=== PATIENT | female | born 1935 | race Caucasian/White ===

== ENCOUNTER 2020-06-09 04:32 | Observation (INO) | payer MEDICARE, OTHER, SELFPAY ==
[2020-06-09] VITALS (9 sets, daily range): BP systolic 131–207; BP diastolic 55–99; PULSE 52–74; RESP 16–28; TEMP 36.7–37; O2SAT 93–100; BMI 28.4
--- NOTE | 2020-06-09 04:35 | CTR_ITS ---
PROCEDURE INFORMATION: Exam: CT Angiography Head With Contrast Exam date and time: 06/09/2020 5:51 AM Age: 84 years old Clinical indication: Speech disturbance; Patient HX: Sudden onset of asphasia. N/v. ; Additional info: Ams/aphasia TECHNIQUE: Imaging protocol: Computed tomography angiography of the head with intravenous contrast. 3D rendering (Not supervised by radiologist): MIP and/or 3D reconstructed images were created by the technologist. Radiation optimization: All CT scans at this facility use at least one of these dose optimization techniques: automated exposure control; mA and/or kV adjustment per patient size (includes targeted exams where dose is matched to clinical indication); or iterative reconstruction. Contrast material: OMNI 350; Contrast volume: 95 ml; Contrast route: INTRAVENOUS (IV); COMPARISON: CT head wo con* [id number] 06/09/2020 4:28 AM RADIATION DOSE METRICS: Total DLP (mGy-cm): 1292.36 FINDINGS: ANTERIOR CIRCULATION: Right internal carotid artery: Unremarkable. Intracranial segment is patent with no significant stenosis. No aneurysm. Right middle cerebral artery: Unremarkable. No occlusion or significant stenosis. No aneurysm. Right anterior cerebral artery: Unremarkable. No occlusion or significant stenosis. No aneurysm. Left internal carotid artery: There is calcification in the left carotid siphon but no significant stenosis.. Intracranial segment is patent with no significant stenosis. No aneurysm. Left middle cerebral artery: Unremarkable. No occlusion or significant stenosis. No aneurysm. Left anterior cerebral artery: Unremarkable. No occlusion or significant stenosis. No aneurysm. POSTERIOR CIRCULATION: Right vertebral artery: Unremarkable. No occlusion or significant stenosis. No aneurysm. Left vertebral artery: Unremarkable. No occlusion or significant stenosis. No aneurysm. Basilar artery: Unremarkable. No occlusion or significant stenosis. No aneurysm. Right posterior cerebral artery: Unremarkable. No occlusion or significant stenosis. No aneurysm. Left posterior cerebral artery: Unremarkable. No occlusion or significant stenosis. No aneurysm. Brain: No definite mass, mass effect, or midline shift. Cerebral ventricles: Normal. No ventriculomegaly. Bones/joints: Unremarkable. No acute fracture. Soft tissues: Unremarkable. IMPRESSION: No large vessel stenosis or occlusion. PROCEDURE INFORMATION: Exam: CT Angiography Neck With Contrast Exam date and time: 06/09/2020 5:51 AM Age: 84 years old Clinical indication: Speech disturbance; Patient HX: Sudden onset of asphasia. N/v. ; Additional info: Ams/aphasia TECHNIQUE: Imaging protocol: Computed tomography angiography of the neck with intravenous contrast. 3D rendering (Not supervised by radiologist): MIP and/or 3D reconstructed images were created by the technologist. Radiation optimization: All CT scans at this facility use at least one of these dose optimization techniques: automated exposure control; mA and/or kV adjustment per patient size (includes targeted exams where dose is matched to clinical indication); or iterative reconstruction. Contrast material: OMNI 350; Contrast volume: 95 ml; Contrast route: INTRAVENOUS (IV); COMPARISON: CT head wo con* [id number] 06/09/2020 4:28 AM RADIATION DOSE METRICS: Total DLP (mGy-cm): 1292.36 FINDINGS: Right common carotid artery: No stenosis. No dissection or occlusion. Right internal carotid artery: No stenosis of the extracranial segment. No dissection or occlusion. Right external carotid artery: No occlusion or stenosis of the origin. Right vertebral artery: There is narrowing of the very distal portion of the right vertebral artery which is probably hypoplastic.. No dissection or occlusion. Left common carotid artery: No stenosis. No dissection or occlusion. Left internal carotid artery: No stenosis of the extracranial segment. No dissection or occlusion. Left external carotid artery: No occlusion or stenosis of the origin. Left vertebral artery: No stenosis. No dissection or occlusion. Bones/joints: No acute fracture. Soft tissues: There is a 6 mm low-density nodule in the right thyroid lobe.. No significant soft tissue swelling. CT/CT angio headneck* [id number] IMPRESSION: No stenosis or occlusion. REFERENCES: NASCET CRITERIA. The degree of internal carotid artery stenosis is based on NASCET criteria. Normal is no stenosis. Mild is less than 50% stenosis. Moderate is 50-69% stenosis. Severe is 70% to 99% stenosis. Total occlusion is no detectable patent lumen. Radiation Dose CTDIVOL = (mGy): DLP = 1292.36~1292.36 (mGy-cm)
--- NOTE | 2020-06-09 04:35 | CTR_ITS ---
PROCEDURE INFORMATION: Exam: CT Head Without Contrast Exam date and time: 06/09/2020 4:37 AM Age: 84 years old Clinical indication: Altered mental status/memory loss and speech disturbance; Confusion or disorientation; Aphasia; Additional info: Ams/aphasia TECHNIQUE: Imaging protocol: Computed tomography of the head without contrast. Radiation optimization: All CT scans at this facility use at least one of these dose optimization techniques: automated exposure control; mA and/or kV adjustment per patient size (includes targeted exams where dose is matched to clinical indication); or iterative reconstruction. Other technique: STROKE PROTOCOL was implemented. COMPARISON: No relevant prior studies available. RADIATION DOSE METRICS: Total DLP (mGy-cm): 818.77 FINDINGS: Brain: Diffuse mild cerebral age related volume loss. Mild patchy low attenuation in the white matter compatible with mild chronic small vessel ischemic disease. No midline shift, mass, fluid collection, or evidence of hemorrhage. Cerebral ventricles: Ventricular enlargement proportional to volume loss. Bones/joints: Unremarkable. No acute fracture. Paranasal sinuses: Visualized sinuses are unremarkable. No fluid levels. Mastoid air cells: Visualized mastoid air cells are well aerated. Soft tissues: Unremarkable. CT/CT head wo con* [id number] IMPRESSION: Mild involutional changes, no acute intracranial abnormality. ASSESSMENT: ASPECTS ([place] Stroke Program Early CT Score) is 10. Radiation Dose CTDIVOL = (mGy): DLP = 818.77 (mGy-cm)
--- NOTE | 2020-06-09 04:36 | XR_ITS ---
WS: [id number] Exam: XR chest 1V portable [id number] Date/Time of Exam: 06/09/2020 4:36 AM Reason For Exam: Altered mental status Comparison 06/01/2018. Findings: The lungs are clear and fully expanded. Costophrenic angles are sharp. No infiltrates. Bronchovascula r relief appears normal. Cardiac silhouette is unremarkable. Bony elements are intact. XR/XR chest 1V portable [id number] IMPRESSION: Unremarkable chest radiograph.
--- NOTE | 2020-06-09 04:36 | ECG_ITS ---
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 Measurements Intervals [place] Rate: 63 P: 1 NH: 179 QRS: 5 QRSD: 94 T: 18 QT: 430 QTc: 442 Interpretive Statements SINUS RHYTHM WITH SINUS ARRHYTHMIA No previous ECG available for comparison Electronically Signed On 06-09-2020 22:00:04 TERRAZZO LAYER by Jolynn Wilhelm M.D. [id number]
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
[2020-06-09] MEDS: sodium chloride 0.9% 1,000 ML 100 ML IV (05:08)
[2020-06-09 05:09] LABS: Basophils # 0.1 10^3/uL (0.0-0.1); Basophils % 0.8 %; Eosinophils # 0.1 10^3/uL (0.0-0.8); Eosinophils % 1.4 %; Hematocrit 40.6 % (37.0-47.0); Hemoglobin 13.6 g/dL (11.5-15.3); Lymphocytes # 1.6 10^3/uL (0.8-4.8); Lymphocytes % 24.7 %; Mean Corpuscular HGB Conc 33.5 g/dL (30.0-36.0); Mean Corpuscular Hemoglobin 30.6 pg (28.0-34.0); Mean Corpuscular Volume 91.2 fL (81-99); Monocytes # 0.7 10^3/uL (0.2-0.9); Monocytes % 10.3 %; Neutrophils # 4.09 10^3/uL (1.8-7.7); Neutrophils % 62.6 %; Nucleated Red Blood Cells % 0 %; Platelet Count 243 10^3/cmm (130-400); Red Blood Count 4.45 10^6/uL (4.1-5.3); Red Cell Distribution Width 12.1 % (12.1-15.1); White Blood Count 6.5 10^3/uL (4.0-10.0)
[2020-06-09 05:34] LABS: Alanine Aminotransferase 14 U/L (0-33); Albumin Level 3.9 g/dL (3.5-5.2); Alkaline Phosphatase 89 IU/L (35-105); Anion Gap 14.7 (5-19); Aspartate Amino Transferase 17 U/L (0-32); Blood Urea Nitrogen 17 mg/dL (8-23); Calcium 8.9 mg/dL (8.5-10.5); Carbon Dioxide 23 mmol/L (22-29); Chloride 105 mmol/L (98-107); Globulin 2.5 g/dL (1.3-4.6); Glucose 117 mg/dL (65-115); Magnesium 1.9 mg/dL (1.7-2.3); Osmolality Calculated 291 mOsm/kg (285-295); Potassium 3.7 mmol/L (3.5-5.1); Sodium 139 mmol/L (136-145); Total Bilirubin 0.7 mg/dL (0.15-1.2); Total Protein 6.4 g/dL (6.6-8.7)
[2020-06-09 05:36] LABS: Troponin(5th) Baseline 20 ng/L (0-10)
[2020-06-09 05:39] LABS: Alcohol Level < 10 mg/dL (0-10)
[2020-06-09 05:40] LABS: Amphetamines Screen Urine Negative (Negative); Barbiturates Screen Urine Negative (Negative); Benzodiazepines Screen Urine Negative (Negative); Cocaine Screen Urine Negative (Negative); Opiate Screen Urine Negative (Negative); PCP Screen Urine Negative (Negative); THC Screen Urine Negative (Negative)
[2020-06-09 05:42] LABS: Bilirubin Urine Neg (Negative); Blood Urine Neg (Negative); Glucose Urine UA Norm (Normal); Ketones Urine Negative (Negative); Leukocyte Esterase Urine Negative (Negative); Nitrate Urine Negative (Negative); Protein Urine Neg (Negative); Sulfosalicylic Acid Urine Negative (Negative); Urine Appearance Clear (CLEAR); Urine Color Yellow (Yellow); Urobilinogen Urine Norm (Negative); pH Urine 8 (5-7)
[2020-06-09 05:43] LABS: RBC Urine 0-4 /hpf (0-2); Squamous Epithelial Cell Urine 0-4 /hpf (0-5); WBC Urine 0-4 /hpf (0-5)
[2020-06-09 05:44] LABS: Add Urine Culture? No; Bacteria Urine TRACE /hpf; Mucus Urine 1+ /hpf; Transitional Epi Cells Urine 0-4 /hpf
[2020-06-09 05:55] LABS: INR 0.91 (0.8-1.2)
[2020-06-09 05:57] LABS: Partial Thromboplastin Time 25.9 SECONDS (23.9-36.7)
[2020-06-09] MEDS: famotidine 20 mg/2 mL INJ 40 MG IVP (06:10)
[2020-06-09] MEDS: hydrocortisone 100 mg/2 mL SDV IVP (06:11)
[2020-06-09] MEDS: diphenhydrAMINE 50 mg/mL SDV 1mL 12.5 MG IVP (06:11)
--- NOTE | 2020-06-09 06:36 | ECG_ITS ---
[facility] Test Date: 2020-06-09 Pat Name: Eva Mandel Department: Room: Gender: Female Travel Registered Nurse Icu: : 1935 Requested By: Janice Boyce Order Number: [id number] Efrain MD: Jolynn Wilhelm M.D. Measurements Intervals [place] Rate: 66 P: 24 TN: 171 QRS: 3 QRSD: 95 T: 234 QT: 489 QTc: 514 Interpretive Statements SINUS RHYTHM MODERATE T-WAVE ABNORMALITY, CONSIDER INFERIOR ISCHEMIA [-0.1+ mV T WAVE IN II/aVF] Compared to ECG 06/09/2020 05:09:17 T-wave abnormality now present Possible ischemia now present Sinus arrhythmia no longer present Electronically Signed On 06-09-2020 22:05:02 REHABILITATION NURSE by Jolynn Wilhelm M.D. [id number]
[2020-06-09 07:20] LABS: Troponin 5 2HR 17.23 ng/L (0-10)
[2020-06-09 07:24] LABS: Troponin 5 2HR Delta -2.77 ABS# (0-10)
[2020-06-09 08:25] LABS: Thyroid Stimulating Hormone 2.41 uIU/mL (0.27-4.20); Vitamin B12 200 pg/mL (232-1245)
--- NOTE | 2020-06-09 10:07 | MR_ITS ---
WS: [id number] MRI BRAIN WITHOUT CONTRAST HISTORY: Aphasia COMPARISON: 06/09/2020 TECHNIQUE: Diffusion imaging, multiplanar T1, T2 and FLAIR imaging obtained. No evidence for acute infarct or hemorrhage. Bhandari-white matter differentiation is normal. Acute diffusion-weighted abnormality involving the LEFT frontoparietal cortex. There is an additional tiny acute lacunar infarct in the cortex of the posterior LEFT frontal lobe. There is no associated hemorrhage. No midline shift. Additional scattered mild chronic microvascular ischemic disease throug hout the white matter. No large infarcts. Ventricles and extra-axial spaces are normal. No inferior displacement of cerebellar tonsils. The sella turcica and pituitary gland are unremarkabl e. Posterior fossa is also unremarkable. Dural venous sinuses and [place] demonstrate no abnormality on this unenhanced studies. Paranasal sinuses: Clear. Mastoid air cells: Normal. Calvarium and scalp: Intact. MR/MR head wo con* [id number] IMPRESSION: 1. Linear area of acute infarction involving the LEFT frontoparietal sulcus an d an additional adjacent tiny lacunar infarct in the cortex of the posterior LE FT frontal lobe. Nonhemorrhagic. 2. Mild chronic microvascular ischemic disease and atrophy.
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
[2020-06-09] MEDS: enoxaparin 40 mg/0.4 mL Syringe SUBCUT (10:35)
[2020-06-09 11:27] LABS: Troponin 5 6HR 16.58 ng/L (0-10)
[2020-06-09 11:34] LABS: Troponin 5 6HR Delta -3.42 ng/L (0-12)
[2020-06-09] MEDS: cyanocobalamin 1,000 mcg/mL SDV 1000 MCG IM (12:09)
--- NOTE | 2020-06-09 14:17 | PC.CHAP ---
Pastoral Care Encounter/Spiritual Assessment Type of Contact [] Declined printing screen assembler visit [] Patient/Family/Request visit [] Outpatient visit [x] Follow-up visit [] Physician referral [] Code/Alert [] Routine visit [] Staff referral [] Actively dying [] Patient sleeping [] Family support [] [] Out of room [] Palliative care [] [] Receiving care in room [] Pre-surgical visit [] Trauma [] Long length of stay [] ICU visit [] Other: Relational/Emotional Strength [] Patient feels connected with others/family/visitors/staff [] Distress [] Loneliness/isolation [] Abandonment Spirituality of Patient [] Person of Desire [] Attends Adventist of their Desire [] Believes in Prayer [] Reads Bible or Mormonism materials [] There are Spiritual issues to be addressed Automobile Or Truck Rental Dispatcher Interventions [] Prayer [] Active listening [] Non-anxious presence [] Spiritual/emotional support [] Crisis/trauma care [] Spiritual counseling [] Bereavement support [] Provided bereavement packet [] Provided Bible/devotional materials [] Provided toy/stuffed animal, coloring book to patient or family member [] Provided Communion [] Anointing/[place] [] Salvation [] Completed spiritual assessment [] Other: Impact on Illness or Injury [] Angry [] Fearful [] Anxious [] Often cries [] Exhaustion [] Unable to work [] Unable to attend methodist [] Unable to walk/stand [] Unable to read [] Unable to drive [] Unable to eat/drink [] Unable to sleep [] Unable to be with family [] Patient intubated [] Other: Summary Follow-up visit Time spent with patient 5 mins
[2020-06-09] MEDS: sodium chloride 0.9% 1,000 ML 75 ML IV (18:12)
[2020-06-10] VITALS (8 sets, daily range): BP systolic 154–190; BP diastolic 70–92; PULSE 55–60; RESP 18–20; TEMP 36.6–36.9; O2SAT 94–97
--- NOTE | 2020-06-10 05:52 | PC.NURSE ---
SHIFT SUMMARY: AT THE BEGINNING OF THE SHIFT THE PATIENT WAS VERY ANXIOUS AND CONFUSED. SHE WAS TRYING TO CLIMB OUT OF BED AND WANDER THE ROOM. AN ORDER WAS GIVEN FOR CIRILO TRUJILLO, BUT THE PATIENT REFUSED TO TAKE. AN UPDATED ORDER FOR IVP ATIVAN WAS PLACED. SHORTLY AFTER THE ORDER WAS PLACED, THE PATIENT CALMED DOWN AND WENT TO SLEEP.AROUND 0300 THE PATIENT BEGAN GETTING UP AGAIN AND SETTING OFF THE BED ALARM. AROUND 0400 THE PATIENT PULLED HER IV OUT. WHEN APPROACHED TO PLACE A NEW ONE, THE PATIENT REFUSED. ONCE REASSURED WHERE SHE WAS AND WHY SHE IS HERE, SHE WENT BACK TO SLEEP.
[2020-06-10 06:02] LABS: Basophils # 0.1 10^3/uL (0.0-0.1); Basophils % 0.8 %; Eosinophils # 0.1 10^3/uL (0.0-0.8); Hemoglobin 12.2 g/dL (11.5-15.3); Lymphocytes # 1.4 10^3/uL (0.8-4.8); Lymphocytes % 21.9 %; Mean Corpuscular Hemoglobin 30.4 pg (28.0-34.0); Mean Corpuscular Volume 92.3 fL (81-99); Mean Platelet Volume 11.5 fL (7.4-10.4); Monocytes # 0.8 10^3/uL (0.2-0.9); Monocytes % 12.5 %; Neutrophils # 4.01 10^3/uL (1.8-7.7); Neutrophils % 63.6 %; Nucleated Red Blood Cells % 0 %; Platelet Count 212 10^3/cmm (130-400); Red Blood Count 4.01 10^6/uL (4.1-5.3); Red Cell Distribution Width 12.4 % (12.1-15.1); White Blood Count 6.3 10^3/uL (4.0-10.0)
[2020-06-10 06:31] LABS: Alanine Aminotransferase 11 U/L (0-33); Albumin Level 3.4 g/dL (3.5-5.2); Alkaline Phosphatase 73 IU/L (35-105); Anion Gap 12.6 (5-19); Aspartate Amino Transferase 15 U/L (0-32); Blood Urea Nitrogen 14 mg/dL (8-23); Calcium 8.4 mg/dL (8.5-10.5); Carbon Dioxide 24 mmol/L (22-29); Chloride 107 mmol/L (98-107); Chol HDL Ratio 2.44 mg/dL (0.0-4.40); Cholesterol 139 mg/dL (0-200); Globulin 2.3 g/dL (1.3-4.6); Glucose 114 mg/dL (65-115); HDL Cholesterol 57 mg/dL (60-100); LDL Cholesterol Calculated 68 mg/dL (50-129); LDL HDL Ratio 1.19 RATIO (0.00-3.22); Osmolality Calculated 291 mOsm/kg (285-295); Potassium 3.6 mmol/L (3.5-5.1); Sodium 140 mmol/L (136-145); Total Bilirubin 0.5 mg/dL (0.15-1.2); Total Protein 5.7 g/dL (6.6-8.7); Triglycerides 68 mg/dL (0-150)
--- NOTE | 2020-06-10 07:00 | USCV_ITS ---
Ministerio Eva Age: 84 Gender: F : 1935 Exam Date: 06/10/2020 05:20 Ordering Phys: Chris Palencia MD Technologist: Lyn Khan Exam Location: [facility] [place] Indication: MURMUR RECENT CVA BP: 154 / 70 HR: 58 Rhythm: Sinus Technical Quality: Adequate MEASUREMENTS (Male / Female) Normal Values 2D ECHO LV Diastolic Diameter PLAX 3.9 cm 4.2 - 5.9 / 3.9 - 5.3 cm LV Systolic Diameter PLAX 2.6 cm LV Chamber Size 3.3 cm IVS Diastolic Thickness 1.6 cm 0.6 - 1.0 / 0.6 - 0.9 cm IVS Systolic Thickness 1.6 cm LVPW Diastolic Thickness 1.5 cm 0.6 - 1.0 / 0.6 - 0.9 cm LVPW Systolic Thickness 1.7 cm RV Chamber Size 2.3 cm LVOT Diameter 2.0 cm LV Ejection Fraction 2D Teich 62.6 % LV Ejection Fraction MOD 2C 60.3 % LV Ejection Fraction 2C AL 61.9 % LA Diameter 2.9 cm LA Width 4.5 cm LA Height 5.0 cm RA Width 2.9 cm RA Height 4.6 cm Aorta at Sinotubular Diameter 3.4 cm M-MODE LV Diastolic Diameter MM 4.0 cm 4.2 - 5.9 / 3.9 - 5.3 cm LV Systolic Diameter MM 2.9 cm LV Ejection Fraction MM Teich 54.2 % IVS Diastolic Thickness MM 1.4 cm 0.6 - 1.0 / 0.6 - 0.9 cm IVS Systolic Thickness MM 1.5 cm LVPW Diastolic Thickness MM 1.3 cm 0.6 - 1.0 / 0.6 - 0.9 cm LVPW Systolic Thickness MM 1.6 cm RV Diastolic Diameter MM 1.2 cm Aortic Annulus Diameter 3.5 cm LA Ao Ratio MM 1.0 MV E Point Septal Separation 0.3 cm DOPPLER AV Peak Velocity 159.0 cm/s LVOT Peak Velocity 104.0 cm/s AV Area Cont Eq vti 2.3 cm squared AV Area Cont Eq pk 2.2 cm squared MV Area PHT 3.7 cm squared Mitral E to A Ratio 1.1 MV E' Velocity 56.5 cm/s Mitral E to MV E' Ratio 11.4 Mitral E to LV E' Lateral Ratio 11.9 Mitral E to LV E' Septal Ratio 11.0 TR Peak Velocity 275.8 cm/s TR Peak Gradient 30.4 mmHg TR Mean Velocity 221.3 cm/s TR Mean Gradient 21.6 mmHg TR Velocity Time Integral 97.4 cm TV Peak E Velocity 69.0 cm/s Right Atrial Pressure 3.0 mmHg Pulmonary Artery Systolic Pressu 33.4 mmHg PV Peak Velocity 80.0 cm/s RV Acceleration Time 0.1 s RV Ejection Time 0.4 s RV AcT/ET 0.3 FINDINGS Left Ventricle Normal left ventricular size, systolic function and wall thickness, with no regional wall motion abnormalities. LVEF is 55-60%. Normal left ventricular wall thickness. Normal diastolic filling pattern. Right Ventricle The right ventricle is normal in size and function. Right Atrium The right atrium is normal in size. Left Atrium The left atrium is moderately dilated Mitral Valve Structurally normal mitral valve without significant stenosis or prolapse. There is no mitral regurgitation. Aortic Valve Structurally normal aortic valve without significant sclerosis or stenosis. There is no aortic regurgitation. Tricuspid Valve Structurally normal tricuspid valve without significant stenosis or regurgitation. RVSP is 30-35mmHg. Pulmonic Valve Structurally normal pulmonic valve without significant stenosis. There is no pulmonic regurgitation. Pericardium Normal pericardium without effusion. Aorta Normal ascending aorta dimension. CONCLUSIONS LV systolic function is normal with EF of 55-60% Diastolic function is normal Left atrium is dilated No comparison studies are available Kai Singletary MD (Electronically Signed) Final Date: 10 June 2020 14:27 S
--- NOTE | 2020-06-10 07:12 | PM.PN ---
Subjective Subjective: Interval history: Events of last night noted. Patient with significant confusion, requiring a dose of Ativan. She never did receive the Geodon that has been ordered. This morning she reports she has some nausea. She states she has a headache on the left. She feels as if she might vomit. She denies any confusion this morning. She denies any muscle weakness, difficulty speaking, or swallowing. Vitals/I&O/Wt Last Vital Signs Temp 97.8 F 06/10/20 04:00 Pulse 55 L 06/10/20 04:00 Resp 20 H 06/10/20 04:00 BP 190/92 06/10/20 04:00 Pulse Ox 96 06/10/20 04:00 06/09/20 06/10/20 06/10/20 22:59 06:59 14:59 Intake Total 480 / 480 Output Total 1200 / 1400 575 / 1975 Balance -720 / -920 -575 / -1495 Weight last 48 hrs Weight 79.832 kg Physical Exam Narrative: EXAM NARRATIVE: General exam is no apparent distress Cardiovascular regular rate and rhythm, occasional premature beat. Telemetry sinus rhythm. 2/6 systolic murmur Lungs clear no wheezing or crackles Abdomen soft nontender with positive bowel sounds Extremities no cyanosis clubbing or edema Neuro no obvious focal deficits Data : 06/10/20 05:27 06/10/20 05:27 A&P Assessment and plan (1) CVA (cerebral vascular accident): MRI demonstrated linear area of infarction left frontal parietal sulcus, acute lacunar infarct posterior left frontal lobe and microvascular disease CTA no flow-limiting disease or thrombus CT head yesterday no hemorrhage Initiated aspirin, statin and hold aspirin until results of CT known. 24 hours without significant symptoms. Initiating lisinopril today. Secondary to patient's complaints of nausea and headache today which were not present yesterday we will repeat CT head noncontrast to prove no hemorrhages present Await therapy evaluations today Await echocardiogram. Status: Acute Qualifiers: CVA mechanism: unspecified Qualified Code(s): I63.9 - Cerebral infarction, unspecified (2) Altered mental status: Has underlying dementia as well which is playing a role Significant anxiety over the last year according to family. Will initiate sertraline. TSH normal Vitamin B12 slightly low. IM dose given yesterday and start p.o. today Status: Acute Qualifiers: Altered mental status type: unspecified Qualified Code(s): R41.82 - Altered mental status, unspecified (3) Hypertension: Lisinopril scheduled to be initiated today. She was supposed to be on this at home but has been noncompliant recently with medication. Status: Acute Additional A&P Information DJD Allow natural Lovenox for DVT prophylaxis. Hold today's dose until CT head results known. Attestations Medical Necessity Statement*: May need continued hospitalization for monitoring secondary to onset of nausea and headache status post CVA. Will await results of CT head prior to making final determination. Coding Level of Care Code Acute Sales Effectiveness Manager for Arminda Love Diagnoses CVA (cerebral vascular accident) I63.9 CVA mechanism: unspecified Altered mental status R41.82 Altered mental status type: unspecified Hypertension I10
--- NOTE | 2020-06-10 07:17 | CT_ITS ---
WS: [id number] CT HEAD NONCONTRAST HISTORY: Nausea and headache starting today, CVA yesterday TECHNIQUE: Contiguous axial imaging performed through the brain in 2.5 mm imaging. Bone and soft tiss ue windows. Sagittal and coronal reformats reviewed. All CT scans at [facility] use at le ast one of these dose optimization techniques: automated exposure control; mA and/or kV adjustment pe r patient size (includes targeted exams where dose is matched to clinical indication); or iterative r econstruction. DLP: 785.27 mGy.cm COMPARISON: 06/09/2020 No acute intracranial hemorrhage, midline shift or mass effect. Mild atrophy and chronic ischemic disease. Very minimal CT changes in the LEFT frontoparietal region and the recently described very small infarct involving the cortex. The lacunar infarct is not eviden t by CT. There is no underlying hemorrhage or change. Ventricles: Normal size with no hydrocephalus. Moderate atherosclerosis intracranial carotid arteries. Paranasal sinuses: Mild mucoperiosteal thickening in the ethmoid air cells. Mastoid air cells: Well pneumatized. Calvarium and scalp: Skull is intact with no soft tissue edema or swelling. CT/CT head wo con* [id number] IMPRESSION: 1. No acute intracranial hemorrhage or edema identified. 2. No significant CT changes in the recently described areas of infarction inv olving the LEFT frontoparietal gyrus and lacunar infarct in the frontal cortex.
[2020-06-10] MEDS: cyanocobalamin 1,000 mcg Tablet 1000 MCG PO (08:01)
[2020-06-10] MEDS: lisinopril 10 mg Tablet PO (08:01)
[2020-06-10] MEDS: sertraline 50 mg Tablet 25 MG PO (08:01)
[2020-06-10] MEDS: sodium chloride 0.9% 1,000 ML 75 ML IV (08:25)
--- NOTE | 2020-06-10 10:02 | PM.DCS ---
Discharge Providers Date of Admission: 06/09/20 08:02 Date of Discharge: June 10, 2020 Attending Provider at Admission: Chris Palencia MD Attending Provider at Discharge: Chris Palencia MD Diagnoses at Discharge Discharge Diagnosis (1) CVA (cerebral vascular accident): Status: Acute Qualifiers: CVA mechanism: unspecified Qualified Code(s): I63.9 - Cerebral infarction, unspecified (2) Altered mental status: Status: Acute Qualifiers: Altered mental status type: unspecified Qualified Code(s): R41.82 - Altered mental status, unspecified (3) Hypertension: Status: Acute (4) Dementia: Status: Acute (5) Anxiety: Status: Acute Reason for Visit Reason for Visit: AMS Hospital Course Hospital Course Eva is an 84-year-old white female who presented to the hospital with difficulty speaking consistent with aphasia, and a headache. She had had some issues with anxiety, gradual worsening of memory difficulties for the last 8 to 9 months consistent with dementia with behaviors.. She has had no vomiting, fever, history of Covid. She was admitted to the hospital with concern of possible CVA. Initial CT head, CTA head and neck demonstrated no concerning findings. An MRI was performed which ultimately demonstrated a CVA, small left frontal parietal and small left lacunar infarct. Aspirin, statin was initiated. Sertraline initiated secondary to significant anxiety present greater than 6 months. Lisinopril initiated after 24 hours, at lower dose secondary to patient's markedly elevated blood pressure and history of previous treatment with lisinopril. By June 10 she was feeling much better. She had no significant symptoms. No aphasia was present. I discussed with her and her family possibility of discharge. This was arranged. She will follow-up with neurology, primary care provider. B12 level was checked and slightly low and supplementation initiated. TSH was normal. Physical Exam Narrative: EXAM NARRATIVE: See exam from earlier today Discharge Data Data Completed and Pending: Completed Studies During Hospitalization Category Date Time Status CT angio headneck * [id number] Urge nt Cat Scan 06/09/20 04:[address] head wo con* 7 0450 Stat Cat Scan 06/09/20 04:[address] head wo con* 7 0450 Urgent Cat Scan 06/10/20 07:17 Completed XR chest 1V [place] ble [id number] Stat Exams 06/09/20 04:36 Completed MR head wo con* 7 0551 Routine MRI 06/09/20 10:07 Completed Pending at discharge Category Date Time Status CV echo complete* [id number] Routine Ultrasound 06/10/20 07:00 Taken Labs from last 24 hours 06/10/20 06/10/20 06/10/20 05:27 05:27 05:27 WBC 6.3 RBC 4.01 L Hgb 12.2 Hct 37.0 MCV 92.3 MCH 30.4 MCHC 33.0 RDW 12.4 Plt Count 212 MPV 11.5 H Neut % (Auto) 63.6 Lymph % (Auto) 21.9 [place] % (Auto) 12.5 Eos % (Auto) 1.0 Baso % (Auto) 0.8 Neut # (Auto) 4.01 Lymph # (Auto) 1.4 [place] # (Auto) 0.8 Eos # (Auto) 0.1 Baso # (Auto) 0.1 Nucleated RBC % (a uto) 0 Nucleated RBCs # 0.0 Sodium 140 Potassium 3.6 Chloride 107 Carbon Dioxide 24 Anion Gap 12.6 BUN 14 Creatinine 0.8 GFR Calculation Not Reportable Glucose 114 Calculated Osmolal ity 291 Calcium 8.4 L Total Bilirubin 0.5 AST 15 ALT 11 Alkaline Phosphata se 73 Troponin T Hi Sens 6Hr Troponin T Hi Sens 6Hr Delta Total Protein 5.7 L Albumin 3.4 L Globulin 2.3 Triglycerides 68 Cholesterol 139 LDL Cholesterol, C alc 68 HDL Cholesterol 57 L LDL/HDL Ratio 1.19 Cholesterol/HDL Ra arturo 2.44 06/09/20 10:42 WBC RBC Hgb Hct MCV MCH MCHC RDW Plt Count MPV Neut % (Auto) Lymph % (Auto) [place] % (Auto) Eos % (Auto) Baso % (Auto) Neut # (Auto) Lymph # (Auto) [place] # (Auto) Eos # (Auto) Baso # (Auto) Nucleated RBC % (a uto) Nucleated RBCs # Sodium Potassium Chloride Carbon Dioxide Anion Gap BUN Creatinine GFR Calculation Glucose Calculated Osmolal ity Calcium Total Bilirubin AST ALT Alkaline Phosphata se Troponin T Hi Sens 6Hr 16.58 H Troponin T Hi Sens 6Hr Delta -3.42 L Total Protein Albumin Globulin Triglycerides Cholesterol LDL Cholesterol, C alc HDL Cholesterol LDL/HDL Ratio Cholesterol/HDL Ra arturo Vitals: Last Vital Signs Temp 97.9 F 06/10/20 08:00 Pulse 57 L 06/10/20 08:00 Resp 18 06/10/20 08:00 BP 176/74 06/10/20 08:00 Pulse Ox 95 06/10/20 08:00 Discharge Plan Discharge Patient Disposition: Home Condition: Stable Prescriptions: New cyanocobalamin (vitamin B-12) [Vitamin B-12] 1,000 mcg Tablet 1,000 mcg PO DAILY Qty: 30 RF: 0 sertraline 50 mg Tablet 25 mg PO DAILY Qty: 15 RF: 0 atorvastatin 40 mg Tablet 40 mg PO BEDTIME Qty: 30 RF: 0 lisinopril 10 mg Tablet 10 mg PO DAILY Qty: 30 RF: 0 aspirin 325 mg Tablet,Delayed Release (Dr/Ec) 325 mg PO DAILY Qty: 30 RF: 0 Discontinued aspirin 325 mg Tablet See Rx Instructions .ROUTE .COMPLEX RF: 0 lisinopril 20 mg Tablet See Rx Instructions .ROUTE .COMPLEX RF: 0 ibuprofen 200 mg Tablet 200 - 800 mg PO PRN RF: 0 Discharge Orders: Discharge Order (Routine); Ordered 06/10/20 Ordered By: Chris Palencia Referrals: Una Kamara MD [Physician] - 2 weeks (Follow up for memory problems as well as CVA) Edwige Riggs DO [Physician] - 06/15/20 9:00 am Discharge Diet: Cardiac Discharge Activity: Increase activity as tolerated Activity Restrictions/Additional Instructions: No driving. Family to stay with you the first 2 nights. Follow-up with neurology 2 weeks Follow-up with primary care provider 3 to 5 days Discharge Attestations Time Spent in Discharge Care*: greater than 30 min Quality Metrics Clinical Quality Measures During this hospital stay, did patient experience: Stroke Contraindication to Antithrombotic: Antithrombotic prescribed Contraindication to Anticoagulation: Other (not indicated) Contraindication to Statin: Statin prescribed Reason stroke education not provided: Stroke education provided to patient Coding Level of Care Code Acute Filer Repairer for Arminda Fwthalia Diagnoses CVA (cerebral vascular accident) I63.9 CVA mechanism: unspecified Altered mental status R41.82 Altered mental status type: unspecified Hypertension I10 Dementia F03.90 Anxiety F41.9
[2020-06-10] MEDS: enoxaparin 40 mg/0.4 mL Syringe SUBCUT (10:27)
[2020-06-10] MEDS: aspirin 325 mg EC Tablet PO (10:27)
[2020-06-10] MEDS: hyDRALAzine 20 mg/mL INJ 1 mL 5 MG IVP (10:43)
--- NOTE | 2020-06-10 11:11 | PC.CHAP ---
Pastoral Care Encounter/Spiritual Assessment Type of Contact [] Declined computer education professor visit [] Patient/Family/Request visit [] Outpatient visit [xx] Follow-up visit [] Physician referral [] Code/Alert [xx] Routine visit [] Staff referral [] Actively dying [] Patient sleeping [] Family support [] [] Out of room [] Palliative care [] [] Receiving care in room [] Pre-surgical visit [] Trauma [] Long length of stay [] ICU visit [] Other: Relational/Emotional Strength [xx] Patient feels connected with others/family/visitors/staff [] Distress [] Loneliness/isolation [] Abandonment Spirituality of Patient [xx] Person of Desire [] Attends Yazdanism of their Desire [xx] Believes in Prayer [xx] Reads Bible or Church materials [] There are Spiritual issues to be addressed Route Sales Driver Interventions [] Prayer [] Active listening [] Non-anxious presence [] Spiritual/emotional support [] Crisis/trauma care [] Spiritual counseling [] Bereavement support [] Provided bereavement packet [] Provided Bible/devotional materials [] Provided toy/stuffed animal, coloring book to patient or family member [] Provided Communion [] Anointing/[place] [] Salvation [xx] Completed spiritual assessment [] Other: Impact on Illness or Injury [] Angry [] Fearful [] Anxious [] Often cries [] Exhaustion [] Unable to work [] Unable to attend taoism [] Unable to walk/stand [] Unable to read [] Unable to drive [] Unable to eat/drink [] Unable to sleep [] Unable to be with family [] Patient intubated [] Other: Summary Pt scheduled for discharge. Pt spoke much about her family - 4 generations including self. They all live close and are close-knit family. Pt had mild stroke but family will help her overcome situation per her statement. Very pleasant to talk to. Time spent with patient 10 minutes
== END 2020-06-10 16:30 | disposition home or self-care (01) ==
LOC: ER 07:23 → MEDSURG 08:35
PROVIDERS: Admitting Provider Internal Medicine; Emergency Provider Emergency Medicine; Visit Provider Internal Medicine
DX: I63.9 Cerebral infarction, unspecified (principal); R41.82 Altered mental status, unspecified; I10 Essential (primary) hypertension; Z79.82 Long term (current) use of aspirin; M19.90 Unspecified osteoarthritis, unspecified site; F03.90 Unspecified dementia, unspecified severity, without behavioral disturbance, psychotic disturbance, mood disturbance, and anxiety; F41.9 Anxiety disorder, unspecified
CPT/HCPCS: 12345; 36415; 70450; 70496; 70498; 70551; 71045; 80053; 80061; 80306; 80307; 81001; 82607; 83735; 84443; 84484; 85025; 85610; 85730; 93005; 93306; 96360; 96361; 96372; 96374; 96375; 97161; 97165; 99283; 99285; G0378; J0360; J1200; J1650; J1720; J3420; J3490; J7030

== ENCOUNTER → 2020-06-15 10:20 | Outpatient (BNVA) | payer MEDICARE, OTHER, SELFPAY | PROVIDERS: Visit Provider Family Medicine | DX: N39.3 Stress incontinence (female) (male) (principal); R30.0 Dysuria; F41.9 Anxiety disorder, unspecified; I63.9 Cerebral infarction, unspecified; I10 Essential (primary) hypertension; Z68.27 Body mass index [BMI] 27.0-27.9, adult; Z71.89 Other specified counseling | CPT/HCPCS: 81000; 87077; 87086; 87184 ==

== ENCOUNTER → 2020-07-06 10:44 | Outpatient (BNVA) | payer MEDICARE, OTHER, SELFPAY | PROVIDERS: PCP Family Medicine; Visit Provider Family Medicine | DX: I63.9 Cerebral infarction, unspecified (principal) | CPT/HCPCS: 80053 ==

== ENCOUNTER → 2020-07-11 13:50 | Outpatient (BNVA) | payer MEDICARE, OTHER, SELFPAY | PROVIDERS: PCP Family Medicine; Visit Provider Specialist | DX: Z86.73 Personal history of transient ischemic attack (TIA), and cerebral infarction without residual deficits (principal); G31.83 Neurocognitive disorder with Lewy bodies | CPT/HCPCS: 96116; 99205 ==

== ENCOUNTER → 2020-10-07 12:10 | Outpatient (BNVA) | payer MEDICARE, OTHER, SELFPAY | PROVIDERS: PCP Family Medicine; Visit Provider Family Medicine | DX: I10 Essential (primary) hypertension (principal); G31.83 Neurocognitive disorder with Lewy bodies | CPT/HCPCS: 80053; 80061 ==

== ENCOUNTER 2020-11-28 09:01 | Outpatient (CLI) | payer MEDICARE, OTHER, SELFPAY ==
--- NOTE | 2020-11-28 09:05 | US_ITS ---
WS: [id number] BILATERAL DIGITAL DIAGNOSTIC MAMMOGRAM MAMMOGRAPHY WITH CAD CLINICAL INFORMATION: left breast pain HISTORY: Pain and soreness left axilla after COVID vaccine COMPARISON: None. TECHNIQUE: Bilateral CC, MLO, and ML views. FINDINGS: Scattered fibroglandular densities bilaterally. Vascular calcification. A few punctate and dystrophic calcifications. No suspicious mammographic abnormalities. ULTRASOUND BREAST LEFT TECHNIQUE: Ultrasound left breast focused area of concern. CLINICAL INFORMATION: left breast pain FINDINGS: Ultrasound left axilla in the area of concern. Normal axillary lymph nodes are visualized preserved f atty hilum. No cortical thickening. No suspicious abnormalities in the left axilla. US/US breast LT limited* [id number] IMPRESSION: BI-RADS: 2-Benign FOLLOW UP: 1 Year Follow-up Recommend return to annual screening mammography.
--- NOTE | 2020-11-28 09:30 | MM_ITS ---
WS: [id number] BILATERAL DIGITAL DIAGNOSTIC MAMMOGRAM MAMMOGRAPHY WITH CAD CLINICAL INFORMATION: left breast pain HISTORY: Pain and soreness left axilla after COVID vaccine COMPARISON: None. TECHNIQUE: Bilateral CC, MLO, and ML views. FINDINGS: Scattered fibroglandular densities bilaterally. Vascular calcification. A few punctate and dystrophic calcifications. No suspicious mammographic abnormalities. ULTRASOUND BREAST LEFT TECHNIQUE: Ultrasound left breast focused area of concern. CLINICAL INFORMATION: left breast pain FINDINGS: Ultrasound left axilla in the area of concern. Normal axillary lymph nodes are visualized preserved f atty hilum. No cortical thickening. No suspicious abnormalities in the left axilla. MM/[place] [id number] IMPRESSION: BI-RADS: 2-Benign FOLLOW UP: 1 Year Follow-up Recommend return to annual screening mammography.
== END 2020-11-28 09:02 | disposition home or self-care (01) ==
LOC: RADSHAW 09:04
PROVIDERS: PCP Family Medicine; Visit Provider Family Medicine
DX: N64.4 Mastodynia (principal)
CPT/HCPCS: 76642; 77066

== ENCOUNTER → 2021-01-23 10:52 | Outpatient (BNVA) | payer MEDICARE, OTHER, SELFPAY | PROVIDERS: PCP Family Medicine; Visit Provider Nurse Practitioner Family | DX: M79.671 Pain in right foot (principal) | CPT/HCPCS: 73620; 73630 ==

== ENCOUNTER → 2021-04-07 12:18 | Outpatient (BNVA) | payer MEDICARE, OTHER, SELFPAY | PROVIDERS: PCP Family Medicine; Visit Provider Family Medicine | DX: I10 Essential (primary) hypertension (principal) | CPT/HCPCS: 80053; 80061; 85025 ==

== ENCOUNTER → 2021-10-06 08:28 | Outpatient (BNVA) | payer MEDICARE, OTHER, SELFPAY | PROVIDERS: PCP Family Medicine; Visit Provider Family Medicine | DX: I10 Essential (primary) hypertension (principal) | CPT/HCPCS: 80053 ==

== ENCOUNTER → 2021-11-21 10:29 | Outpatient (BNVA) | payer MEDICARE, OTHER, SELFPAY | PROVIDERS: PCP Family Medicine; Visit Provider Nurse Practitioner Family | DX: R68.89 Other general symptoms and signs (principal) | CPT/HCPCS: 87804 ==

== ENCOUNTER → 2022-04-06 10:17 | Outpatient (BNVA) | payer MEDICARE, OTHER, SELFPAY | PROVIDERS: PCP Family Medicine; Visit Provider Family Medicine | DX: I10 Essential (primary) hypertension (principal); I63.512 Cerebral infarction due to unspecified occlusion or stenosis of left middle cerebral artery; M17.12 Unilateral primary osteoarthritis, left knee | CPT/HCPCS: 80053; 80061; 82043; 85025 ==

== ENCOUNTER 2022-06-18 07:52 | Emergency (ER) | payer MEDICARE, OTHER, SELFPAY ==
[2022-06-18 08:02] VITALS: BP 170/96; PULSE 75; RESP 16; TEMP 36.3; O2SAT 99; BMI 28.1
--- NOTE | 2022-06-18 08:15 | ECG_ITS ---
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 Measurements Intervals [place] Rate: 65 P: 39 PA: 168 QRS: 15 QRSD: 88 T: 52 QT: 412 QTc: 429 Interpretive Statements SINUS RHYTHM NONSPECIFIC T-WAVE ABNORMALITY Compared to ECG 06/09/2020 06:55:00 Possible ischemia no longer present T-wave abnormality still present Electronically Signed On 06-18-2022 14:22:32 BALL WORKER by Jolynn Wilhelm M.D. [id number]
--- NOTE | 2022-06-18 08:25 | CT_ITS ---
WS: [id number] CT HEAD TECHNIQUE: Noncontrast CT of the head obtained from the skullbase to the vertex. CLINICAL INFORMATION: hx CVA/weakness COMPARISON: 2019 DLP: 1049.[address] scans at [facility] use at least one of these dose optimization techniques: automated e xposure control; mA and/or kV adjustment per patient size (includes targeted exams where dose is matc hed to clinical indication); or iterative reconstruction. FINDINGS: No evidence of intracranial hemorrhage or mass effect. Ventricular system and basal cisterns are villasenor nt. Mild small vessel changes with moderate parenchymal volume loss. Intracranial vascular calcificat ion. No extra-axial fluid collections. No evidence of mass or mass effect. Paranasal sinuses and mastoid air cells are well aerated. .Normal visualized soft tissues. CT/CT head wo con* [id number] IMPRESSION: 1. No evidence of intracranial hemorrhage or mass effect. 2. Mild small vessel changes. Moderate parenchymal volume loss. 3. No acute intracranial findings.
--- NOTE | 2022-06-18 08:25 | XR_ITS ---
WS: [id number] XR chest 1V portable [id number] REASON FOR EXAM: dyspnea/cough FINDINGS: Mild tortuosity the thoracic aorta. Normal heart size. Calcified granulomatous disease in both hemithoraces. No acute pulmonary parenchymal or pleural abnormality. Moderate degenerative spondylosis in the mid and lower thoracic spine. Examination unchanged compared to 06/09/2020. XR/XR chest 1V portable [id number] IMPRESSION: Stable chest with no acute abnormality.
[2022-06-18 08:32] LABS: Glucose Point of Care 103 mg/dL (70-110)
--- NOTE | 2022-06-18 10:02 | ED_ITS ---
HPI - Weakness General: Chief complaint: Weakness Stated complaint: tremors Time Seen by Provider: 06/18/22 08:24 Source: patient and family Mode of arrival: EMS History of Present Illness: 86-year-old female presents to the emergency room complaining of episodes where she just is unable to remember anything. She states she had an episode last week where she had difficulty recognizing her son did not know she was in her own home that resolved spontaneously this was 4 days ago she is also had several episodes of shaking spells feels like her legs are going to give way. She denies falling striking her head no fever sweats chills cough shortness of breath she denies any discomfort or symptoms now no abdominal pain or chest pain. No dysuria urgency or frequency no hematuria. She does have a history of CVA. Patient lives alone and is having difficult time managing at this time. MD Complaint: generalized weakness (Intermittent) Onset (ago): day(s) Duration: intermittent Location: generalized Migration: none Severity: mild Relieving factors: none Exacerbating factors: none Associated symptoms: Reports confusion (Intermittently); Denies chest pain, chills, melena, decreased appetite, diaphoresis, dysuria, easy bruising, fever(s), headache(s), myalgias, nausea, rash, short of breath, syncope or vomiting Review of Systems Const: Denies: fever(s), chills, fatigue, malaise or diaphoresis ENMT: Denies: throat pain, ear or mastoid pain, nasal discharge or nasal congestion Card: Denies: chest pain or syncope Resp: Denies: dyspnea, productive cough or non-productive cough GI: Denies: nausea, vomiting or melena : Denies: dysuria Skin/Breast: Denies: rash or pruritus Neuro: Reports: confusion (Intermittently); Denies: headache(s) Suresh/Lymph: Denies: easy bruising PFSH ED PFSH: Medical History DJD (degenerative joint disease) Hypertension Surgical History H/O knee surgery H/O: hysterectomy S/P cholecystectomy Family History Other Diabetes Social History Smoking and tobacco status: never smoked Alcohol intake: never Physical Exam Const: GENERAL APPEARANCE: cooperative and comfortable ORIENTATION/CONSCIOUSNESS: Yes awake, Yes oriented to person, Yes oriented to place and Yes oriented to time HENMT: COMMON NORMALS: normocephalic, atraumatic and hearing grossly normal bilaterally HEAD & SCALP: normocephalic and atraumatic Resp: COMMON NORMALS: normal respiratory effort, No retractions, No use of accessory muscles and clear to auscultation bilaterally AUSCULTATION: clear to auscultation bilaterally Cardio: COMMON NORMALS: regular rate, regular rhythm and No murmurs present (Cardio) RATE: regular rate RHYTHM: regular rhythm GI: COMMON NORMALS: Soft to palpation and No hepatosplenomegaly present AUSCULTATION: Yes normoactive bowel sounds PALPATION: Yes Soft to palpation, No Tenderness to palpation present (GI), No Guarding due to palpation present (GI) and Yes No hepatosplenomegaly present Extremity: COMMON NORMALS: normal to inspection, capillary refill normal, no clubbing, cyanosis or edema, no calf tenderness and no pedal edema Neuro: SENSORIUM/ORIENTATION: Yes oriented to person, Yes oriented to place and Yes oriented to time Skin: COMMON NORMALS: no rashes or lesions noted GENERAL SKIN EXAM: no rashes or lesions noted Course Vital Signs: Vital signs: Vital Signs Temperature 97.4 F L 06/18/22 08:02 Pulse Rate 68 06/18/22 11:55 Respiratory Rate 16 06/18/22 11:55 Blood Pressure 132/70 06/18/22 11:55 Pulse Oximetry 95 06/18/22 11:55 Oxygen Delivery Me thod 06/18/22 08:02 MDM - Weakness Medical Decision Making Patient is weakness. No significant findings on her labs she has a history of Lewy body dementia think that plays a large role in it she states she is feeling better. I do not have anything requiring acute admission to the hospital I do think she may require senior living level of care discussed this with her she seems to have sent to it at this time. We will discharge her home encouraged to follow-up with her primary care doctor for senior living placement. Medical Records I reviewed the patient's medical records. Lab Data I reviewed the patient's lab results. 06/18/22 11:12 06/18/22 11:12 Radiology Impressions Chest X-Ray 06/18/22 08:25 IMPRESSION: Stable chest with no acute abnormality. Head CT 06/18/22 08:25 IMPRESSION: 1. No evidence of intracranial hemorrhage or mass effect. 2. Mild small vessel changes. Moderate parenchymal volume loss. 3. No acute intracranial findings. Laboratory Results WBC 6.4 10^3/uL (4.0-10.0) 06/18/22 11:12 RBC 4.52 10^6/uL (4.1-5.3) 06/18/22 11:12 Hgb 14.1 g/dL (11.5-15.3) 06/18/22 11:12 Hct 41.6 % (37.0-47.0) 06/18/22 11:12 MCV 92.0 fl (81-99) 06/18/22 11:12 MCH 31.2 pg (28.0-34.0) 06/18/22 11:12 MCHC 33.9 g/dL (30.0-36.0) 06/18/22 11:12 RDW 11.9 % (12.1-15.1) L 06/18/22 11:12 Plt Count 239 10^3/cmm (130-400) 06/18/22 11:12 MPV 11.5 fL (7.4-10.4) H 06/18/22 11:12 Neut % (Auto) 68.1 % 06/18/22 11:12 Lymph % (Auto) 19.7 % 06/18/22 11:12 [place] % (Auto) 10.1 % 06/18/22 11:12 Eos % (Auto) 1.1 % 06/18/22 11:12 Baso % (Auto) 0.8 % 06/18/22 11:12 Neut # (Auto) 4.37 10^3/uL (1.8-7.7) 06/18/22 11:12 Lymph # (Auto) 1.3 10^3/uL (0.8-4.8) 06/18/22 11:12 [place] # (Auto) 0.7 10^3/uL (0.2-0.9) 06/18/22 11:12 Eos # (Auto) 0.1 10^3/uL (0.0-0.8) 06/18/22 11:12 Baso # (Auto) 0.1 10^3/uL (0.0-0.1) 06/18/22 11:12 Nucleated RBC % (auto) 0 % 06/18/22 11:12 Nucleated RBCs # 0.0 /100WBC 06/18/22 11:12 Sodium 144 mmol/L (136-145) 06/18/22 11:12 Potassium 3.6 mmol/L (3.5-5.1) 06/18/22 11:12 Chloride 108 mmol/L (98-107) H 06/18/22 11:12 Carbon Dioxide 22 mmol/L (22-29) 06/18/22 11:12 Anion Gap 17.6 (5-19) 06/18/22 11:12 BUN 23 mg/dL (8-23) 06/18/22 11:12 Creatinine 0.9 mg/dL (0.5-0.9) 06/18/22 11:12 GFR Calculation Not Reportable 06/18/22 11:12 Glucose 104 mg/dL (65-115) 06/18/22 11:12 POC Glucose 103 mg/dL (70-110) 06/18/22 08:18 Calculated Osmolality 302 mOsm/kg (285-295) H 06/18/22 11:12 Calcium 9.6 mg/dL (8.5-10.5) 06/18/22 11:12 Total Bilirubin 0.8 mg/dL (0.15-1.2) 06/18/22 11:12 AST 17 U/L (0-32) 06/18/22 11:12 ALT 10 U/L (0-33) 06/18/22 11:12 Alkaline Phosphatase 83 U/L (35-105) 06/18/22 11:12 Total Protein 6.9 g/dL (6.6-8.7) 06/18/22 11:12 Albumin 4.1 g/dL (3.5-5.2) 06/18/22 11:12 Globulin 2.8 g/dL (1.3-4.6) 06/18/22 11:12 Urine Color Yellow (Yellow) 06/18/22 10:20 Urine Appearance Clear (CLEAR) 06/18/22 10:20 Urine pH 8 (5-7) H 06/18/22 10:20 Ur Specific [place] 1.015 (1.005-1.030) 06/18/22 10:20 Urine Protein Neg (Negative) 06/18/22 10:20 Urine Glucose (UA) Norm (Normal) 06/18/22 10:20 Urine Ketones Negative (Negative) 06/18/22 10:20 Urine Blood Neg (Negative) 06/18/22 10:20 Urine Nitrate Negative (Negative) 06/18/22 10:20 Urine Bilirubin Neg (Negative) 06/18/22 10:20 Prot Sulfosalicylic Acd Negative (Negative) 06/18/22 10:20 Urine Urobilinogen Norm mg/dL (Negative) 06/18/22 10:20 Ur Leukocyte Esterase Negative (Negative) 06/18/22 10:20 Discharge Plan 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 Condition: Stable Prescriptions: No Action aspirin [Adult Aspirin Regimen] 81 mg tablet,delayed release (DR/EC) 81 mg PO DAILY lisinopril 10 mg tablet 10 mg PO DAILY 90 Days Qty: 90 1RF atorvastatin 40 mg tablet 40 mg PO BEDTIME Qty: 90 1RF Vitamin B-12 1,000 mcg tablet 1,000 mcg PO DAILY Qty: 90 0RF meloxicam 7.5 mg tablet 7.5 mg PO DAILY sertraline 25 mg tablet 25 mg PO DAILY Discharge Orders: Discharge ED (Routine); Ordered 06/18/22 Ordered By: Wali Groves Referrals: Edwige Riggs DO [Primary Care Provider] - Discharge Diet: Usual diet Discharge Activity: Increase activity as tolerated Activity Restrictions/Additional Instructions: You are seen in the emergency room for complaint of a tremor. Suspect it is related to your diagnosis of Lewy body Parkinson's disease. There was no acute infections found CT of your head and chest x-ray were normal urine exam was normal. Recommend you follow-up with your primary care doctor or neurology in the near future. Coding Level of Care Code ED Academic Affairs Vice President for Chg Fwd Exam Detailed
[2022-06-18 10:47] LABS: Add Urine Microscopic? NO; Charge for UA Resulting for Rev
[2022-06-18 10:50] LABS: Bilirubin Urine Neg (Negative); Blood Urine Neg (Negative); Glucose Urine UA Norm (Normal); Ketones Urine Negative (Negative); Leukocyte Esterase Urine Negative (Negative); Nitrate Urine Negative (Negative); Protein Urine Neg (Negative); Specific Gravity, Urine 1.015 (1.005-1.030); Sulfosalicylic Acid Urine Negative (Negative); Urine Appearance Clear (CLEAR); Urine Color Yellow (Yellow); Urobilinogen Urine Norm (Negative); pH Urine 8 (5-7)
[2022-06-18 11:43] LABS: Basophils # 0.1 10^3/uL (0.0-0.1); Basophils % 0.8 %; Eosinophils # 0.1 10^3/uL (0.0-0.8); Eosinophils % 1.1 %; Hematocrit 41.6 % (37.0-47.0); Hemoglobin 14.1 g/dL (11.5-15.3); Lymphocytes # 1.3 10^3/uL (0.8-4.8); Lymphocytes % 19.7 %; Mean Corpuscular HGB Conc 33.9 g/dL (30.0-36.0); Mean Corpuscular Hemoglobin 31.2 pg (28.0-34.0); Mean Platelet Volume 11.5 fL (7.4-10.4); Monocytes # 0.7 10^3/uL (0.2-0.9); Monocytes % 10.1 %; Neutrophils # 4.37 10^3/uL (1.8-7.7); Neutrophils % 68.1 %; Nucleated Red Blood Cells % 0 %; Platelet Count 239 10^3/cmm (130-400); Red Blood Count 4.52 10^6/uL (4.1-5.3); Red Cell Distribution Width 11.9 % (12.1-15.1); White Blood Count 6.4 10^3/uL (4.0-10.0)
[2022-06-18 11:55] VITALS: BP 132/70; PULSE 68; RESP 16; O2SAT 95
[2022-06-18 11:59] LABS: Alanine Aminotransferase 10 U/L (0-33); Albumin Level 4.1 g/dL (3.5-5.2); Alkaline Phosphatase 83 U/L (35-105); Anion Gap 17.6 (5-19); Aspartate Amino Transferase 17 U/L (0-32); Blood Urea Nitrogen 23 mg/dL (8-23); Calcium 9.6 mg/dL (8.5-10.5); Carbon Dioxide 22 mmol/L (22-29); Chloride 108 mmol/L (98-107); Globulin 2.8 g/dL (1.3-4.6); Glucose 104 mg/dL (65-115); Osmolality Calculated 302 mOsm/kg (285-295); Potassium 3.6 mmol/L (3.5-5.1); Sodium 144 mmol/L (136-145); Total Bilirubin 0.8 mg/dL (0.15-1.2); Total Protein 6.9 g/dL (6.6-8.7)
[2022-06-18 16:10] VITALS: BP 132/70; PULSE 68; RESP 16; TEMP 36.3; O2SAT 95
== END 2022-06-18 16:05 | disposition home or self-care (01) ==
PROVIDERS: Emergency Provider Family Medicine; PCP Family Medicine
DX: G20 Parkinson's disease (principal); I10 Essential (primary) hypertension
CPT/HCPCS: 36415; 36416; 70450; 71045; 80053; 81003; 82962; 85025; 93005; 99285

== ENCOUNTER 2022-07-29 11:39 | Emergency (ER) | payer MEDICARE, OTHER, SELFPAY ==
[2022-07-29] VITALS (9 sets, daily range): BP systolic 159–220; BP diastolic 68–95; PULSE 54–71; RESP 15–23; TEMP 37; O2SAT 96–99
--- NOTE | 2022-07-29 11:48 | ED_ITS ---
HPI - General Adult General: Chief complaint: General Medical Stated complaint: BP high Time Seen by Provider: 07/29/22 11:48 History of Present Illness: Ms. Mandel is a 86-year-old lady with history of stroke, Lewy body Parkinson's, [facility] pressure. Patient takes lisinopril 10 mg daily and reports compliance with her medication regimen. She does not typically take her blood pressure at home however last night noted that it was high with systolics in the 180s. This morning it was high again and her daughter brought her to the emergency department. The patient denies any associated symptoms including specifically denying chest pain, shortness of breath, headache, new neuro symptoms. She has not had change in caffeine intake or used [id number] medications. In the past she recalls her blood pressure being relatively well controlled. No other specific changes in health, exacerbating, or alleviating factors identified. Onset (ago): day(s) Relieving factors: none Exacerbating factors: none Associated symptoms: Reports no associated symptoms Review of Systems General: Reports: 10 or more systems reviewed and unremarkable except in HPI and below PFSH ED PFSH: Medical History DJD (degenerative joint disease) Hypertension Surgical History H/O knee surgery H/O: hysterectomy S/P cholecystectomy Family History Other Diabetes Social History Smoking and tobacco status: never smoked Alcohol intake: never Physical Exam Const: COMMON NORMALS: alert GENERAL APPEARANCE: cooperative and well developed HENMT: COMMON NORMALS: normocephalic and atraumatic HEAD & SCALP: normoceph alic and atraumatic Eye: COMMON NORMALS: conjunctivae normal CONJUNCTIVA: Yes conjunctivae normal SCLERA: sclerae normal Neck/C-Spine: COMMON NORMALS: supple GENERAL: Yes trachea midline Resp: COMMON NORMALS: clear to auscultation bilaterally EFFORT & INSPECTION: Yes able to speak in complete sentences AUSCULTATION: clear to auscultation bilaterally Cardio: COMMON NORMALS: regular rate and regular rhythm RATE: regular rate RHYTHM: regular rhythm GI: COMMON NORMALS: Soft to palpation PALPATION: Yes Soft to palpation and No Tenderness to palpation present (GI) Extremity: GENERAL: Yes normal exam except as noted and No edema Neuro: COMMON NORMALS: moves all extremities SENSORIUM/ORIENTATION: Yes alert and No Orientation impaired Psych: COMMON NORMALS: mental status grossly normal and Normal thought process present THOUGHT PROCESS: Normal thought process present Course Vital Signs: Vital signs: Vital Signs Temperature 98.6 F 07/29/22 11:44 Pulse Rate 63 07/29/22 15:00 Respiratory Rate 20 H 07/29/22 15:00 Blood Pressure 159/73 07/29/22 15:00 Pulse Oximetry 99 07/29/22 15:00 Oxygen Delivery Me thod 07/29/22 13:00 [facility] - General Adult Medical Decision Making 86-year-old lady with history of hypertension presenting due to abnormal blood pressure. No associated symptoms reported, no evidence of neurologic abn ormality on exam. EKG shows sinus rhythm with nonspecific ST segment abnormalities.. No significant hematologic abnormalities. No significant metabolic abnormalities. Negative range 2-hour delta troponin. BNP only minimally elevated. Overall no clear explanation for patient's hypotension or evidence of endorgan dysfunction. Chest x-ray with no lobar consolidation or pneumothorax. Patient treated with hydralazine, labetalol, Norvasc with improvement in blood pressure. Plan to have patient start Norvasc and prescribed hydralazine as needed and have close follow-up with PCP. The results of ED evaluation were discussed with the patient including prescriptions and/or symptomatic cares (if applicable) including appropriate and responsible use, followup plan, and return precautions. The patient verbalized understanding and felt safe for discharge. Medical Records I reviewed the patient's medical records. Lab Data I reviewed the patient's lab results. 07/29/22 12:10 07/29/22 12:10 Radiology Impressions Chest X-Ray 07/29/22 13:09 IMPRESSION: No acute cardiopulmonary abnormality identified. Laboratory Results WBC 5.9 10^3/uL (4.0-10.0) 07/29/22 12:10 RBC 4.26 10^6/uL (4.1-5.3) 07/29/22 12:10 Hgb 13.3 g/dL (11.5-15.3) 07/29/22 12:10 Hct 39.9 % (37.0-47.0) 07/29/22 12:10 MCV 93.7 fl (81-99) 07/29/22 12:10 MCH 31.2 pg (28.0-34.0) 07/29/22 12:10 MCHC 33.3 g/dL (30.0-36.0) 07/29/22 12:10 RDW 12.5 % (12.1-15.1) 07/29/22 12:10 Plt Count 234 10^3/cmm (130-400) 07/29/22 12:10 MPV 11.6 fL (7.4-10.4) H 07/29/22 12:10 Neut % (Auto) 62.8 % 07/29/22 12:10 Lymph % (Auto) 22.7 % 07/29/22 12:10 [place] % (Auto) 10.1 % 07/29/22 12:10 Eos % (Auto) 3.1 % 07/29/22 12:10 Baso % (Auto) 1.0 % 07/29/22 12:10 Neut # (Auto) 3.68 10^3/uL (1.8-7.7) 07/29/22 12:10 Lymph # (Auto) 1.3 10^3/uL (0.8-4.8) 07/29/22 12:10 [place] # (Auto) 0.6 10^3/uL (0.2-0.9) 07/29/22 12:10 Eos # (Auto) 0.2 10^3/uL (0.0-0.8) 07/29/22 12:10 Baso # (Auto) 0.1 10^3/uL (0.0-0.1) 07/29/22 12:10 Nucleated RBC % (auto) 0 % 07/29/22 12:10 Nucleated RBCs # 0.0 /100WBC 07/29/22 12:10 Sodium 140 mmol/L (136-145) 07/29/22 12:10 Potassium 4.0 mmol/L (3.5-5.1) 07/29/22 12:10 Chloride 104 mmol/L (98-107) 07/29/22 12:10 Carbon Dioxide 25 mmol/L (22-29) 07/29/22 12:10 Anion Gap 15.0 (5-19) 07/29/22 12:10 BUN 21 mg/dL (8-23) 07/29/22 12:10 Creatinine 0.7 mg/dL (0.5-0.9) 07/29/22 12:10 GFR Calculation Not Reportable 07/29/22 12:10 Glucose 108 mg/dL (65-115) 07/29/22 12:10 Calculated Osmolality 294 mOsm/kg (285-295) 07/29/22 12:10 Calcium 9.0 mg/dL (8.5-10.5) 07/29/22 12:10 Total Bilirubin 0.6 mg/dL (0.15-1.2) 07/29/22 12:10 AST 19 U/L (0-32) 07/29/22 12:10 ALT 17 U/L (0-33) 07/29/22 12:10 Alkaline Phosphatase 75 U/L (35-105) 07/29/22 12:10 Troponin T Baseline 11 ng/L (0-10) H 07/29/22 12:10 Troponin T 120 Minute 11.41 ng/L (0-10) H 07/29/22 14:00 Delta Troponin T 0.41 ABS# (0-10) 07/29/22 14:00 NT-Pro-B Natriuret Pep 649 pg/mL (0-450) H 07/29/22 12:10 Total Protein 6.7 g/dL (6.6-8.7) 07/29/22 12:10 Albumin 4.1 g/dL (3.5-5.2) 07/29/22 12:10 Globulin 2.6 g/dL (1.3-4.6) 07/29/22 12:10 TSH 2.69 uIU/mL (0.27-4.20) 07/29/22 12:10 Discharge Plan Discharge Patient Disposition: Home Clinical Impression: Hypertension Condition: Stable Prescriptions: New Norvasc 5 mg tablet 5 mg PO DAILY Qty: 30 0RF hydralazine 25 mg tablet 25 mg PO TID PRN (Reason: hypertension) Qty: 60 0RF Rx Instructions: systolic BP >180 or diastolic BP >110 No Action aspirin [Adult Aspirin Regimen] 81 mg tablet,delayed release (/EC) 81 mg PO DAILY lisinopril 10 mg tablet 10 mg PO DAILY 90 Days Qty: 90 1RF atorvastatin 40 mg tablet 40 mg PO BEDTIME Qty: 90 1RF Vitamin B-12 1,000 mcg tablet 1,000 mcg PO DAILY Qty: 90 0RF meloxicam 7.5 mg tablet 7.5 mg PO DAILY sertraline 25 mg tablet 25 mg PO DAILY Discharge Orders: Discharge ED (Routine); Ordered 07/29/22 Ordered By: Ze Yang Referrals: Edwige Riggs DO [Primary Care Provider] - Discharge Diet: Usual diet Discharge Activity: Increase activity as tolerated Patient Instructions: Hypertension (ED) Activity Restrictions/Additional Instructions: Thank you for visiting the emergency department. You were seen and evaluated for high blood pressure. The exact cause of the increase is unclear. We are pleased that you had improvement with treatment. I will prescribe amlodipine which you should take daily. I will also prescribe hydralazine which should be taken as needed as directed. Please follow-up with your primary care provider. Return to the emergency department for uncontrolled symptoms or anything else that you are concerned about a feel needs emergency department evaluation. Coding Level of Care Code ED Delivery Room Supervisor for Arminda Fwthalia Exam Comprehensive
--- NOTE | 2022-07-29 12:03 | ECG_ITS ---
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 Measurements Intervals [place] Rate: 60 P: 42 MT: 171 QRS: 10 QRSD: 102 T: 39 QT: 433 QTc: 435 Interpretive Statements SINUS RHYTHM Compared to ECG 06/18/2022 08:15:45 T-wave abnormality no longer present Electronically Signed On 07-29-2022 20:04:47 CHIEF CREW SCHEDULER by Jolynn Wilhelm M.D. [id number]
[2022-07-29] MEDS: labetalol 5 mg/mL SDV 20mL 10 MG IVP (12:16)
[2022-07-29 12:25] LABS: Basophils # 0.1 10^3/uL (0.0-0.1); Eosinophils # 0.2 10^3/uL (0.0-0.8); Eosinophils % 3.1 %; Hematocrit 39.9 % (37.0-47.0); Hemoglobin 13.3 g/dL (11.5-15.3); Lymphocytes # 1.3 10^3/uL (0.8-4.8); Lymphocytes % 22.7 %; Mean Corpuscular HGB Conc 33.3 g/dL (30.0-36.0); Mean Corpuscular Hemoglobin 31.2 pg (28.0-34.0); Mean Corpuscular Volume 93.7 fl (81-99); Mean Platelet Volume 11.6 fL (7.4-10.4); Monocytes # 0.6 10^3/uL (0.2-0.9); Monocytes % 10.1 %; Neutrophils # 3.68 10^3/uL (1.8-7.7); Neutrophils % 62.8 %; Nucleated Red Blood Cells % 0 %; Platelet Count 234 10^3/cmm (130-400); Red Blood Count 4.26 10^6/uL (4.1-5.3); Red Cell Distribution Width 12.5 % (12.1-15.1); White Blood Count 5.9 10^3/uL (4.0-10.0)
[2022-07-29 12:53] LABS: Troponin(5th) Baseline 11 ng/L (0-10)
[2022-07-29 13:01] LABS: Alanine Aminotransferase 17 U/L (0-33); Albumin Level 4.1 g/dL (3.5-5.2); Alkaline Phosphatase 75 U/L (35-105); Aspartate Amino Transferase 19 U/L (0-32); Blood Urea Nitrogen 21 mg/dL (8-23); Carbon Dioxide 25 mmol/L (22-29); Chloride 104 mmol/L (98-107); Globulin 2.6 g/dL (1.3-4.6); Glucose 108 mg/dL (65-115); NT Pro B Type Natriuretic Pept 649 pg/mL (0-450); Osmolality Calculated 294 mOsm/kg (285-295); Sodium 140 mmol/L (136-145); Thyroid Stimulating Hormone 2.69 uIU/mL (0.27-4.20); Total Bilirubin 0.6 mg/dL (0.15-1.2); Total Protein 6.7 g/dL (6.6-8.7)
--- NOTE | 2022-07-29 13:09 | XRR_ITS ---
PROCEDURE INFORMATION: Exam: XR Chest Exam date and time: 07/29/2022 1:13 PM Age: 86 years old Clinical indication: Dyspnea; Additional info: Hypertension TECHNIQUE: Imaging protocol: Radiologic exam of the chest. Views: 1 view. Other technique: Frontal upright view of the chest. COMPARISON: CR XR chest 1V portable [id number] 06/18/2022 10:00 AM FINDINGS: Tubes, catheters and devices: EKG leads are present overlying the chest. Lungs: The lungs are clear bilaterally. The pulmonary vasculature is normal. Pleural spaces: No pleural effusion. No pneumothorax. Heart/Mediastinum: The heart is normal in size and contour. Mediastinum: Stable. Vasculature: Mild aortic arch atherosclerotic calcification without ectasia. Bones/joints: Stable. XR/XR chest 1V portable [id number] IMPRESSION: No acute cardiopulmonary abnormality identified.
[2022-07-29] MEDS: hyDRALAzine 25 mg Tablet PO (13:57)
[2022-07-29] MEDS: amlodipine 5 mg Tablet PO (13:57)
--- NOTE | 2022-07-29 13:57 | ECG_ITS ---
[facility] Test Date: 2022-07-29 Pat Name: Eva Mandel Department: Room: Gender: Female Radio Host: : 1935 Requested By: Ze Yang Order Number: [id number] Efrain MD: Jolynn Wilhelm M.D. Measurements Intervals [place] Rate: 60 P: 63 RI: 175 QRS: 20 QRSD: 97 T: 40 QT: 436 QTc: 439 Interpretive Statements SINUS RHYTHM NONSPECIFIC T-WAVE ABNORMALITY Compared to ECG 07/29/2022 12:03:10 T-wave abnormality now present Electronically Signed On 07-29-2022 20:23:22 BUFFET RUNNER by Jolynn Wilhelm M.D. [id number]
[2022-07-29 14:54] LABS: Troponin 5 2HR 11.41 ng/L (0-10)
[2022-07-29 15:09] LABS: Troponin 5 2HR Delta 0.41 ABS# (0-10)
--- NOTE | 2022-07-29 16:10 | PC.NURSE ---
[facility]AL[facility]INE SENT HOME WITH PT DUE TO PHARMACY ISSUES. DR. VANIA LUJAN.
== END 2022-07-29 15:54 | disposition home or self-care (01) ==
PROVIDERS: Emergency Provider Emergency Medicine; PCP Family Medicine
DX: I10 Essential (primary) hypertension (principal); Z79.82 Long term (current) use of aspirin; Z86.73 Personal history of transient ischemic attack (TIA), and cerebral infarction without residual deficits; G20 Parkinson's disease; F02.80 Dementia in other diseases classified elsewhere, unspecified severity, without behavioral disturbance, psychotic disturbance, mood disturbance, and anxiety
CPT/HCPCS: 36415; 71045; 80053; 83880; 84443; 84484; 85025; 93005; 96374; 99285; J3490

== ENCOUNTER 2022-10-05 09:53 | Outpatient (CLI) | payer MEDICARE, OTHER, SELFPAY ==
[2022-10-05 10:18] VITALS: BMI 27.4
--- NOTE | 2022-10-05 10:21 | ECG_ITS ---
[facility] Test Date: 2022-10-05 Pat Name: Eva Mandel Department: Room: Gender: Female Voice Writing Reporter: : 1935 Requested By: Edwige Riggs Order Number: [id number] Efrain MD: Jolynn Wilhelm M.D. Interpretive Statements NAME OF STUDY: LEXISCAN SESTAMIBI STRESS TEST INDICATION: [htn, ] PROCEDURE: At the baseline, the EKG revealed normal sinus rhythm with diffused nonspecific T wave changes. The baseline heart was 66 bpm with a blood pressue of 144/69 mm of Hg Lexiscan was infused over a period of 20 seconds. A total of 0.4 milligrams of Lexiscan was infused. The stress phase was continued for a total of 5 minutes. Heart rate at the end of the stress phase was 89 bpm with a blood pressure 152/63 mm of Hg. The EKG at the peak infusion revealed [no significant changes] []. Sestamibi was injected 20 seconds after the Lexiscan infusion. Heart rate at the end of the recovery phase was 78 bpm with a blood pressure of 137/58 mm of Hg. CONCLUSION: 1. No significant EKG changes with the[] LexiScan infusion[] 2. No LexiScan induced chest pain or cardiac arrhythmia [] 3. Normal blood pressure and heart rate response [] 4. Sestamibi/sestamibi perfusion scan pending; see separate report. Electronically Signed On 10-05-2022 15:36:21 CDT by Jolynn Wilhelm M.D. [id number]
--- NOTE | 2022-10-05 10:21 | NMCV_ITS ---
NM luci perf SPECT r/s* [id number] Eva Mandel Age: 86 Gender: F : 1935 Exam Date: 10/05/2022 11:06 Ordering Phys: Edwige Riggs DO Technologist: DE Jarquin Exam Location: [facility] Indications: ESSENTIAL HYPERTENSION STRESS TEST Please see separate stress test report in [facility] for full findings IMAGE PROTOCOL Rest/Stress 1 Lexiscan Day Radiopharmaceutical Dose (mCi) Administration Site Administered by Rest: Tc-99m 10.2 IV DE Recinos Sestamibi Stress:Tc-99m 32.8 IV DE Recinos Sestamibi Rest: 05-Oct-2022 60 Discovery 630 Stress: 05-Oct-2022 30 Discovery 630 0.4mg Lexiscan. Supine position only as patient was unable to lay prone. SPECT RESULTS Technical Quality: Excellent Raw Data Analysis: Normal Image Corrections: No attenuation or motion correction applied Summed Stress Score: 0 Summed Rest Score: 0 Summed Difference Score: 0 PERFUSION FINDINGS Urine uniform myocardial tracer uptake with no significant perfusion abnormalities FUNCTIONAL RESULTS (calculated via Gated SPECT) Stress Image LV EF (%): 86 Stress EDV (mL):65 TID: 0.8 Stress ESV (mL):9 FUNCTIONAL FINDINGS: Segmental wall motion analysis revealing no gross wall motion abnormalities IMPRESSIONS 1. Uniform myocardial tracer uptake with no significant perfusion abnormalities. 2. Normal LV ejection fraction of 86%. 3. LV wall motion analysis revealing no gross wall motion abnormalities. 4. Normal LV volume Low probability for coronary ischemia, based on the above findings No similar previous studies are available for comparison Dr Jolynn Wilhelm MD [facility] (Electronically Signed) Final Date: 05 October 2022 15:17 S
[2022-10-05] MEDS: regadenoson 0.4 Mg/5 ml Syringe IVP (11:49)
[2022-10-05 12:03] VITALS: BP 137/58; PULSE 73
== END 2022-10-05 09:54 | disposition home or self-care (01) ==
LOC: CDL 09:59
PROVIDERS: PCP Family Medicine; Visit Provider Family Medicine
DX: I10 Essential (primary) hypertension (principal)
CPT/HCPCS: 36415; 78452; 93017; 96374; A9500; J2785

== ENCOUNTER 2023-12-15 23:45 | Emergency (ER) | payer MEDICARE, OTHER, SELFPAY ==
[2023-12-15 23:49] VITALS: BP 221/102; PULSE 66; RESP 16; TEMP 36.6; O2SAT 96
[2023-12-16 00:02] VITALS: BP 215/104; PULSE 59; RESP 16; O2SAT 97
[2023-12-16 00:17] LABS: Add Urine Microscopic? NO; Charge for UA Resulting for Rev
[2023-12-16 00:26] LABS: Bilirubin Urine Neg (Negative); Blood Urine Neg (Negative); Glucose Urine UA Norm (Normal); Ketones Urine Negative (Negative); Leukocyte Esterase Urine Negative (Negative); Nitrate Urine Negative (Negative); Protein Urine Neg (Negative); Urine Appearance Clear (CLEAR); Urine Color Yellow (Yellow); Urobilinogen Urine Neg (Negative); pH Urine 7 (5-7)
[2023-12-16 00:27] LABS: Basophils # 0.1 10^3/uL (0.0-0.1); Basophils % 0.8 %; Eosinophils # 0.3 10^3/uL (0.0-0.8); Eosinophils % 3.6 %; Lymphocytes # 1.8 10^3/uL (0.8-4.8); Lymphocytes % 24.9 %; Mean Corpuscular HGB Conc 33.2 g/dL (30-55); Mean Corpuscular Hemoglobin 31.3 pg (27-33); Mean Corpuscular Volume 94.3 fl (85-98); Mean Platelet Volume 11.1 fL (7.4-10.4); Monocytes % 13.4 %; Neutrophils # 4.13 10^3/uL (1.8-7.7); Neutrophils % 57.3 %; Nucleated Red Blood Cells % 0 %; Platelet Count 245 10^3/cmm (157-399); Red Blood Count 4.03 10^6/uL (3.85-5.65); Red Cell Distribution Width 12.9 % (12.1-15.1); White Blood Count 7.22 10^3/uL (3.29-11.43)
[2023-12-16 00:37] VITALS: BP 202/103
[2023-12-16] MEDS: cloNIDine 0.1 mg Tablet 0.200000000000000011 MG PO (00:37)
[2023-12-16 00:39] VITALS: BP 202/103; PULSE 62; RESP 16; O2SAT 93
[2023-12-16 00:51] LABS: Alanine Aminotransferase 26 U/L (0-33); Albumin Level 3.8 g/dL (3.5-5.2); Alkaline Phosphatase 84 U/L (35-105); Anion Gap 14.2 (5-19); Aspartate Amino Transferase 22 U/L (0-32); Blood Urea Nitrogen 21 mg/dL (8-23); Calcium 9.2 mg/dL (8.5-10.5); Carbon Dioxide 25 mmol/L (22-29); Chloride 104 mmol/L (98-107); Globulin 2.8 g/dL (1.3-4.6); Glucose 96 mg/dL (65-115); Osmolality Calculated 291 mOsm/kg (285-295); Potassium 4.2 mmol/L (3.5-5.1); Sodium 139 mmol/L (136-145); Total Bilirubin 0.4 mg/dL (0.15-1.2); Total Protein 6.6 g/dL (6.6-8.7)
--- NOTE | 2023-12-16 01:14 | ED_ITS ---
HPI - General Adult 2 General: Chief complaint: General Medical Stated complaint: AMS Time Seen by Provider: 12/16/23 00:10 History of Present Illness: Patient presents to the ER with complaints of elevated blood pressure. Patient is in assisted living. Patient has a history of Lewy body dementia and patient gets more confused when her blood pressure gets elevated. Patient has been recently been seen by her PCP and has a blood pressure medicine change. Upon arrival patient's blood pressure was 221/102. Patient is alert oriented x 4 coherent in no acute distress. Family is at bedside. They also state patient has frequent UTIs. It sometimes causes confusion. Review of Systems 2 General: Reports: 10 or more systems reviewed and unremarkable except in HPI and below PFSH ED 2 PFSH: Medical History DJD (degenerative joint disease) Hypertension Surgical History H/O knee surgery H/O: hysterectomy S/P cholecystectomy Family History Other Diabetes Social History Smoking and tobacco/nicotine status: never used tobacco/nicotine Alcohol intake: never Physical Exam 2 Const: COMMON NORMALS: no acute distress, average body habitus, patient oriented x3, no limitations, healthy appearing, alert and well nourished HENMT: COMMON NORMALS: normocephalic, atraumatic, hearing grossly normal bilaterally, external ears normal, Normal external nose present and moist oral mucous membranes HEAD & SCALP: normocephalic and atraumatic NOSE: Normal external nose present EXTERNAL EAR: Yes external ears normal Neck/C-Spine: COMMON NORMALS: no JVD Chest: COMMONS NORMALS: normal inspection of the chest and normal palpation of entire chest wall Resp: COMMON NORMALS: normal respiratory effort, No retractions, No use of accessory muscles and clear to auscultation bilaterally AUSCULTATION: clear to auscultation bilaterally Cardio: COMMON NORMALS: no JVD, regular rate, regular rhythm, S1 normal heart sound present, S2 normal heart sound present, No gallops present (Cardio), No clicks present (Cardio), No murmurs present (Cardio) and No rub (Cardio) R ATE: regular rate RHYTHM: regular rhythm HEART SOUNDS: S1 normal heart sound present and S2 normal heart sound present GI: COMMON NORMALS: Normal to inspection, nondistended, normoactive bowel sounds present, Soft to palpation, non-tender, No hepatosplenomegaly present and no masses PALPATION: Yes Soft to palpation and Yes No hepatosplenomegaly present Neuro: COMMON NORMALS: patient oriented x3 SENSORIUM/ORIENTATION: Yes alert Course 2 Vital Signs: Vital signs: Vital Signs Temperature 97.8 F 12/15/23 23:49 Pulse Rate 72 12/16/23 01:54 Respiratory Rate 14 12/16/23 01:24 Blood Pressure 133/75 12/16/23 01:54 Pulse Oximetry 93 12/16/23 01:54 Oxygen Delivery Me thod Room Air 12/16/23 01:54 MDM - General Adult Medical Decision Making Lab work was obtained included CBC CMP urinalysis, all essentially benign patient's blood pressure was extremely high when she arrived it was 221/102. Patient was given 0.2 mg of clonidine which brought it down to about 200 and she was given 10 mg IV hydralazine which brought her down to 133/75. Patient is feeling much better. Patient be discharged home. Lab Data 12/16/23 00:00 12/16/23 00:00 Laboratory Results WBC 7.22 10^3/uL (3.29-11.43) 12/16/23 00:00 RBC 4.03 10^6/uL (3.85-5.65) 12/16/23 00:00 Hgb 12.60 g/dL (11.27-16.99) 12/16/23 00:00 Hct 38.0 % (36-47) 12/16/23 00:00 MCV 94.3 fl (85-98) 12/16/23 00:00 MCH 31.3 pg (27-33) 12/16/23 00:00 MCHC 33.2 g/dL (30-55) 12/16/23 00:00 RDW 12.9 % (12.1-15.1) 12/16/23 00:00 Plt Count 245 10^3/cmm (157-399) 12/16/23 00:00 MPV 11.1 fL (7.4-10.4) H 12/16/23 00:00 Neut % (Auto) 57.3 % 12/16/23 00:00 Lymph % (Auto) 24.9 % 12/16/23 00:00 [place] % (Auto) 13.4 % 12/16/23 00:00 Eos % (Auto) 3.6 % 12/16/23 00:00 Baso % (Auto) 0.8 % 12/16/23 00:00 Neut # (Auto) 4.13 10^3/uL (1.8-7.7) 12/16/23 00:00 Lymph # (Auto) 1.8 10^3/uL (0.8-4.8) 12/16/23 00:00 [place] # (Auto) 1.0 10^3/uL (0.2-0.9) H 12/16/23 00:00 Eos # (Auto) 0.3 10^3/uL (0.0-0.8) 12/16/23 00:00 Baso # (Auto) 0.1 10^3/uL (0.0-0.1) 12/16/23 00:00 Nucleated RBC % (auto) 0 % 12/16/23 00:00 Nucleated RBCs # 0.0 /100WBC 12/16/23 00:00 Sodium 139 mmol/L (136-145) 12/16/23 00:00 Potassium 4.2 mmol/L (3.5-5.1) 12/16/23 00:00 Chloride 104 mmol/L (98-107) 12/16/23 00:00 Carbon Dioxide 25 mmol/L (22-29) 12/16/23 00:00 Anion Gap 14.2 (5-19) 12/16/23 00:00 BUN 21 mg/dL (8-23) 12/16/23 00:00 Creatinine 1.0 mg/dL (0.5-0.9) H 12/16/23 00:00 GFR Calculation Not Reportable 12/16/23 00:00 Glucose 96 mg/dL (65-115) 12/16/23 00:00 Calculated Osmolality 291 mOsm/kg (285-295) 12/16/23 00:00 Calcium 9.2 mg/dL (8.5-10.5) 12/16/23 00:00 Total Bilirubin 0.4 mg/dL (0.15-1.2) 12/16/23 00:00 AST 22 U/L (0-32) 12/16/23 00:00 ALT 26 U/L (0-33) 12/16/23 00:00 Alkaline Phosphatase 84 U/L (35-105) 12/16/23 00:00 Total Protein 6.6 g/dL (6.6-8.7) 12/16/23 00:00 Albumin 3.8 g/dL (3.5-5.2) 12/16/23 00:00 Globulin 2.8 g/dL (1.3-4.6) 12/16/23 00:00 Urine Color Yellow (Yellow) 12/15/23 23:53 Urine Appearance Clear (CLEAR) 12/15/23 23:53 Urine pH 7 (5-7) 12/15/23 23:53 Ur Specific [place] 1.000 (1.005-1.030) L 12/15/23 23:53 Urine Protein Neg (Negative) 12/15/23 23:53 Urine Glucose (UA) Norm (Normal) 12/15/23 23:53 Urine Ketones Negative (Negative) 12/15/23 23:53 Urine Blood Neg (Negative) 12/15/23 23:53 Urine Nitrate Negative (Negative) 12/15/23 23:53 Urine Bilirubin Neg (Negative) 12/15/23 23:53 Urine Urobilinogen Neg mg/dL (Negative) 12/15/23 23:53 Ur Leukocyte Esterase Negative (Negative) 12/15/23 23:53 No radiology studies performed this visit Discharge Plan Discharge Patient Disposition: Home Clinical Impression: Hypertension, LBD (Lewy body dementia) Condition: Stable Prescriptions: No Action aspirin [Adult Aspirin Regimen] 81 mg tablet,delayed release (DR/EC) 81 mg PO DAILY atorvastatin 40 mg tablet 40 mg PO BEDTIME Qty: 90 1RF lisinopril 10 mg tablet 10 mg PO DAILY 90 Days Qty: 90 1RF meloxicam 15 mg tablet 15 mg PO DAILY Qty: 90 0RF sertraline 25 mg tablet See Rx Instructions .ROUTE .COMPLEX Qty: 90 3RF Dose Instruction: TAKE 1 TABLET DAILY Rx Instructions: TAKE 1 TABLET DAILY acetaminophen 650 mg tablet extended release 650 mg PO Q8H PRN (Reason: pain) Qty: 90 2RF Vitamin B-12 1,000 mcg tablet 1,000 mcg PO DAILY Qty: 90 0RF Discharge Orders: Discharge ED (Routine); Ordered 12/16/23 Ordered By: Shane Srivastava Referrals: Edwige Riggs DO [Primary Care Provider] - 1 week Patient Instructions: Hypertension Activity Restrictions/Additional Instructions: Your evaluation in ER was unremarkable, you received some short-term blood pressure medicine to bring your blood pressure down. Please follow-up with your family practice physician for further evaluation and treatment. Coding Level of Care Code ED Investigator Claims for Arminda Love
[2023-12-16] MEDS: hyDRALAzine 20 mg/mL INJ 1 mL 10 MG IVP (01:22)
[2023-12-16 01:24] VITALS: BP 180/90; PULSE 61; RESP 14; O2SAT 97
[2023-12-16 01:54] VITALS: BP 133/75; PULSE 72; O2SAT 93
== END 2023-12-16 02:41 | disposition home or self-care (01) ==
PROVIDERS: Emergency Provider Emergency Medicine; PCP Family Medicine
DX: G31.83 Neurocognitive disorder with Lewy bodies (principal); F02.80 Dementia in other diseases classified elsewhere, unspecified severity, without behavioral disturbance, psychotic disturbance, mood disturbance, and anxiety; I10 Essential (primary) hypertension; Z79.82 Long term (current) use of aspirin
CPT/HCPCS: 80053; 81003; 85025; 96374; 99284; J0360

== ENCOUNTER → 2024-02-11 15:10 | Outpatient (BNVA) | payer MEDICARE, OTHER, SELFPAY | PROVIDERS: PCP Family Medicine; Visit Provider Family Medicine | DX: R30.0 Dysuria (principal) | CPT/HCPCS: 81000; 87086 ==